=== PATIENT | female | born 1985 | race Caucasian/White ===

== ENCOUNTER 2019-03-03 13:30 | Emergency (ER) | payer OTHER ==
--- NOTE | 2019-03-03 14:21 | ER Document Report ---
ED Medical Screen (RME) - General Chief Complaint: Abdominal Pain Stated Complaint: ABDOMINAL PAIN Time Seen by Provider: 03/03/19 14:15 Primary Care Provider: TIFFANY FRAZIER MD [Primary Care Provider] - Follow up as needed TRAVEL OUTSIDE OF THE U.[place] IN LAST 30 DAYS: No - HPI Notes: 03/03/19 14:19 Patient is a 33-year-old female with no significant past medical history aside from endometriosis and ovarian cyst who presents to [facility] department complaining of right lower quadrant pain. Patient states that this does not feel like previous ovarian cysts and is concerned about possible appendicitis. Her symptoms have been present for 2-3 days. Pain does not radiate. She is eating and drinking without difficulty. She is urinating normally and having normal bowel movements. She has not had any vaginal discharge, odor, or bleeding. No concern of STD or STI. Denies GALVAN, fever, neck pain, URI, CP, SOB, or rash. I have treated and performed a rapid initial assessment of this patient. A comprehensive ED assessment and evaluation of the patient, analysis of test results and completion of medical decision making process will be conducted by additional ED providers. I will defer imaging to the next provider as I do not have a table to evaluate the patient's abdomen thoroughly with to decipher between CT scan/ultrasound. PHYSICAL EXAMINATION: GENERAL: Well-appearing, well-nourished and in no acute distress. A&Ox4. Answers questions appropriately. LUNGS: Breath sounds clear to auscultation bilaterally and equal. No wheezes rales or rhonchi. HEART: Regular rate and rhythm without murmurs, rubs, gallops. ABDOMEN: Soft, nondistended abdomen. No guarding, no rebound. Normal bowel sounds present. No CVA tenderness bilaterally. + mild right lower quadrant/pelvic tenderness (cannot elicit thorough abd exam w/o table, however). Extremities: No cyanosis, clubbing, or edema b/l. NEUROLOGICAL: Normal speech, normal gait. PSYCH: Normal mood, normal affect. - Related Data Allergies/Adverse Reactions: No Known Allergies Allergy (Verified 03/03/19 13:30) Physical Exam - Vital signs Vitals: Temp Pulse Resp BP Pulse Ox 98.9 F 70 16 102/59 L 97 03/03/19 13:40 03/03/19 13:40 03/03/19 13:40 03/03/19 13:40 03/03/19 13:40 Course - Vital Signs Vital signs: Temp Pulse Resp BP Pulse Ox 98.9 F 70 16 102/59 L 97 03/03/19 13:40 03/03/19 13:40 03/03/19 13:40 03/03/19 13:40 03/03/19 13:40 Doctor's Discharge - Discharge Referrals: TIFFANY FRAZIER MD [Primary Care Provider] - Follow up as needed
[2019-03-03] MEDS ORDERED: MORPHINE SULFATE 10 MG/ML INJ IV ONE (14:48)
[2019-03-03] MEDS ORDERED: ONDANSETRON HCL INJ/PF 4 MG/2 ML SDV IV ONE (14:48)
[2019-03-03] MEDS ORDERED: NORMAL SALINE 1000 ML 1,000 ML IV ONE (14:49)
--- NOTE | 2019-03-03 14:54 | ER Document Report ---
ED General - General Chief Complaint: Abdominal Pain Stated Complaint: ABDOMINAL PAIN Time Seen by Provider: 03/03/19 14:15 Primary Care Provider: TIFFANY FRAZIER MD [ACTIVE STAFF] - Follow up as needed Mode of Arrival: Ambulatory Information source: Patient TRAVEL OUTSIDE OF THE [place] IN LAST 30 DAYS: No - HPI Patient complains to provider of: Right lower quadrant abdominal pain Onset: Other - Approximately 72 hours ago Onset/Duration: Sudden Quality of pain: Sharp Severity: Severe Pain Level: 4 Associated symptoms: denies: Chills, Fever Exacerbated by: Movement Relieved by: Denies Similar symptoms previously: No Recently seen / treated by doctor: No Notes: 33-year-old female coming in today with chief complaint right lower quadrant pain. About 72 hours ago she had generalized periumbilical pain she states this time has gone by the pain has migrated toward the right lower quadrant of her abdomen. She does not report any fevers but she has been taking ibuprofen to help control the pain. Patient also reports history of multiple ovarian cysts that have ruptured and cause pain in the past but this scenario does not quite fit the same pattern as before. She is here concerned about possible developing appendicitis. - Related Data Allergies/Adverse Reactions: No Known Allergies Allergy (Verified 03/03/19 13:30) Past Medical History - General Information source: Patient - Social History Smoking Status: Never Smoker Frequency of alcohol use: Occasional Drug Abuse: None Family History: Reviewed & Not Pertinent Patient has suicidal ideation: No Patient has homicidal ideation: No Renal/ Medical History: Denies: Hx Peritoneal Dialysis Past Surgical History: Reports: Hx Gynecologic Surgery - For endometriosis Review of Systems - Review of Systems Notes: Constitutional: No fevers. No chills. EENT: No eye redness. No eye pain. No ear pain. No sore throat. Cardiovascular: No chest pain. No palpitations. Respiratory: No cough. No shortness of breath. No respiratory distress. Gastrointestinal: Positive for abdominal pain. No nausea, vomiting, or diarrhea. Genitourinary: Atraumatic. No lesions. No pain. No discharge. Musculoskeletal: Atraumatic. No swelling. No deformities. Skin: No rash or lesions. Lymphatic: No swollen lymph nodes. Neurologic: No headache. No syncope. Psychiatric: No suicidal or homicidal ideation. Physical Exam - Vital signs Vitals: Temp Pulse Resp BP Pulse Ox 98.9 F 70 16 102/59 L 97 03/03/19 13:40 03/03/19 13:40 03/03/19 13:40 03/03/19 13:40 03/03/19 13:40 - Notes Notes: General: Well-developed, well-nourished. In no acute distress. Non-toxic appe aring. Cardiac: Well-perfused. Regular rate and rhythm. No murmurs, rubs, or gallops. Pulmonary: No respiratory distress. No cyanosis. Bilateral lung fiels are clear to auscultation. Abdominal: Tenderness to palpation of the suprapubic and right lower quadrant regions. There is rebound tenderness on palpation of the right lower quadrant. Otherwise the abdomen is benign. Nondistended. Bowel sounds are present in all 4 quadrants. HEENT: Head is atraumatic. Conjunctivae not reddened. No tearing. PERRL. EOMI. Orbits atraumatic. No periorbital swelling or erythema. Oropharynx is without er ythema, swelling, or exudates. Neck: Supple. No adenopathy. No meningismus. Dermatologic: Warm with good turgor. No rash. Atraumatic. Chest: Atraumatic. No chest wall tenderness to palpation. Musculoskeletal: Moves all extremities well. No range of motion deficits. no muscular or joint tenderness. No paraspinal muscle tenderness. no midline spinal tenderness or step-off. Genitourinary: Examination deferred Neurologic: No gross neurologic deficits. Psychiatric: Normal mood. Course - Re-evaluation Re-evalutation: 03/03/19 14:54 Patient with history of frequent ovarian cysts. She is at risk for torsion. Also given her history of periumbilical pain that localized to the right lower quadrant with rebound tenderness also definitely need to consider appendicitis. 03/03/19 17:40 Labs reassuring. There is a 6.4 cm right ovarian mass which has a broad differential. Patient is aware this is going to need [employer]EL[employer] follow-up. In the meantime, I will write her a prescription for pain medication and nausea medication as needed. We will give her [employer]EL[employer] for follow-up. - Vital Signs Vital signs: Temp Pulse Resp BP Pulse Ox 98.9 F 70 16 102/59 L 97 03/03/19 13:40 03/03/19 13:40 03/03/19 13:40 03/03/19 13:40 03/03/19 13:40 - Laboratory Result Diagrams: 03/03/19 15:32 03/03/19 15:32 Laboratory results interpreted by me: 03/03/19 03/03/19 14:50 15:32 Total Protein 8.3 H Urine Ketones TRACE H Discharge - Discharge Clinical Impression: Ovarian mass, right Condition: Good Disposition: HOME, SELF-CARE Instructions: Ovarian Cyst ([facility]) Additional Instructions: Please call for the soonest appointment with the theology professor for further evaluation of the mass on your right ovary. Prescriptions: Hydrocodone/Acetaminophen [[place] 5-325 mg Tablet] 1 tab PO Q6HP PRN #15 tablet PRN Reason: Ondansetron [Zofran Odt 4 mg Tablet] 1 - 2 tab PO Q4H PRN #15 tab.rapdis PRN Reason: For Nausea/Vomiting Referrals: TIFFANY FRAZIER MD [ACTIVE STAFF] - Follow up as needed FABIO MCMULLEN MD [[facility]] - 03/05/19 Print Language: Mongolian
[2019-03-03 15:13] LABS: APPEARANCE,URINE CLEAR; BILIRUBIN,URINE NEGATIVE (NEGATIVE); COLOR,URINE STRAW; GLUCOSE, URINE NEGATIVE (NEGATIVE); KETONES,URINE TRACE mg/dL (NEGATIVE); LEUKOCYTE ESTERASE,URINE NEGATIVE (NEGATIVE); NITRITE,URINE NEGATIVE (NEGATIVE); PROTEIN,URINE NEGATIVE (NEGATIVE); URINE SPECIFIC GRAVITY 1.008; UROBILINOGEN,URINE NEGATIVE mg/dL (<2.0)
[2019-03-03 15:52] LABS: ABSOLUTE EOSINOPHILS # (AUTO) 0.2 10^3/uL (0.0-0.6); ABSOLUTE LYMPHOCYTES (AUTO) 2.5 10^3/uL (0.5-4.7); ABSOLUTE MONOCYTES (AUTO) 0.5 10^3/uL (0.1-1.4); ABSOLUTE NEUT (AUTO) 7.1 10^3/uL (1.7-8.2); BASOPHILS % (AUTO) 0.5 % (0-2); EOSINOPHILS % (AUTO) 2.3 % (0-6); HEMATOCRIT 39.1 % (36.0-47.0); HEMOGLOBIN 13.3 g/dL (12.0-15.5); MEAN CORPUSCULAR HEMOGLOBIN 29.9 pg (27.0-33.4); MEAN CORPUSCULAR VOLUME 88 fl (80-97); MONOCYTES % (AUTO) 4.9 % (3-13); RED BLOOD COUNT 4.43 10^6/uL (3.72-5.28); RED CELL DISTRIBUTION WIDTH 13.3 % (11.5-14.0); SEGMENTED NEUTROPHILS % (AUTO) 68.3 % (42-78); TOTAL CELLS COUNTED % (AUTO) 100 %; WHITE BLOOD COUNT 10.4 10^3/uL (4.0-10.5)
[2019-03-03 16:03] LABS: ALANINE AMINOTRANSFERASE 20 U/L (9-52); ALBUMIN 4.8 g/dL (3.5-5.0); ALKALINE PHOSPHATASE 85 U/L (38-126); ANION GAP 10 (5-19); ASPARTATE AMINO TRANSFERASE 19 U/L (14-36); BILIRUBIN,DIRECT 0.2 mg/dL (0.0-0.4); BILIRUBIN,TOTAL 0.3 mg/dL (0.2-1.3); BLOOD UREA NITROGEN 15 mg/dL (7-20); CALCIUM 10.2 mg/dL (8.4-10.2); CARBON DIOXIDE 25 mmol/L (22-30); CHLORIDE 106 mmol/L (98-107); GLUCOSE 87 mg/dL (75-110); PLATELET COUNT 301 10^3/uL (150-450); POTASSIUM 3.9 mmol/L (3.6-5.0); SODIUM 140.7 mmol/L (137-145); TOTAL PROTEIN 8.3 g/dL (6.3-8.2)
--- NOTE | 2019-03-03 16:29 | RADIOLOGY REPORT (SQ) ---
EXAM DESCRIPTION: CT ABD/PELVIS WITH IV ONLY COMPLETED DATE/TIME: 03/03/2019 4:10 pm REASON FOR STUDY: rlq pain with rebound tenderness r/o appendix COMPARISON: None. TECHNIQUE: CT scan of the abdomen and pelvis performed using helical scanning technique with dynamic intravenous contrast injection. No oral contrast. Images reviewed with lung, soft tissue, and bone windows. Reconstructed coronal and sagittal MPR images reviewed. Delayed images for evaluation of the urinary system also acquired. All images stored on PACS. All CT scanners at this facility use dose modulation, iterative reconstruction, and/or weight based d osing when appropriate to reduce radiation dose to as low as reasonably achievable (ALARA). [facility]: Dose Right [facility]: CareDose [facility]: Dose Right [facility]: Teradose 4D [facility]: StormMQ CONTRAST TYPE AND DOSE: contrast/concentration: Isovue 350.00 mg/ml; Total Contrast Delivered: 95.0 ml; Total Saline Delivered: 50.0 ml 95 mL IV of Omnipaque 350- low osmolar. RENAL FUNCTION: None required. The patient is less than 50 years old. RADIATION DOSE: CT Rad equipment meets quality standard of care and radiation dose reduction techniq ues were employed. CTDIvol: 9.0 - 12.6 mGy. DLP: 1087 mGy-cm.. LIMITATIONS: None. FINDINGS: LOWER CHEST: No significant findings. No nodules or infiltrates. LIVER: Normal size. No masses. No dilated ducts. SPLEEN: Normal size. No focal lesions. Splenule present. PANCREAS: No masses. No significant calcifications. No adjacent inflammation or peripancreatic fluid collections. Pancreatic duct not dilated. GALLBLADDER: No identified stones by CT criteria. No inflammatory changes to suggest cholecystitis. ADRENAL GLANDS: No significant masses or asymmetry. RIGHT KIDNEY AND URETER: No solid masses. No significant calcifications. No hydronephrosis or hyd roureter. LEFT KIDNEY AND URETER: No solid masses. No significant calcifications. No hydronephrosis or hydr oureter. AORTA AND VESSELS: No aneurysm. No dissection. Renal arteries, SMA, celiac without stenosis. RETROPERITONEUM: No retroperitoneal adenopathy, hemorrhage or masses. BOWEL AND PERITONEAL CAVITY: No dilated loops of bowel. No intraperitoneal free air free fluid. No peritoneal mass. APPENDIX: Normal. PELVIS: Just superior to the uterine fundus is a large cystic like lesion measuring 6.0 x 5.4 x 6.9 c m. Unclear if this is uterus or ovarian in origin. Left adnexal hypodensity measuring 3.6 x 2.3 cm and likely represents an ovarian cyst. ABDOMINAL WALL: No masses. No hernias. BONES: Mild L5-S1 degenerative disc disease. OTHER: No other significant finding. IMPRESSION: 1. Normal appendix. 2. Large cystic like lesion in the pelvis. Unclear if this is uterine or ovarian in origin. Recomme nd dedicated pelvic ultrasound for further evaluation. TECHNICAL DOCUMENTATION: JOB ID: [id number] Quality ID # [id number]: Final reports with documentation of one or more dose reduction techniques (e.g., Au tomated exposure control, adjustment of the mA and/or kV according to patient size, use of iterative reconstruction technique) 2010 [employer]- All Rights Reserved Reading location - IP/workstation name: [email or web address]
--- NOTE | 2019-03-03 16:59 | RADIOLOGY REPORT (SQ) ---
EXAM DESCRIPTION: U/S NON OB PEL W/DOPPLER COMPLETED DATE/TIME: 03/03/2019 4:38 pm REASON FOR STUDY: rlq pain. hx cysts. r/o torsion COMPARISON: 03/03/2019 TECHNIQUE: Dynamic and static grayscale images acquired of the pelvis via transvaginal approach and recorded on PACS. Additional selected color Doppler and spectral images recorded. LIMITATIONS: None. FINDINGS: UTERUS: Contour normal. No mass. ENDOMETRIAL STRIPE: No focal or generalized thickening. No masses. CERVIX: No nabothian cysts. RIGHT OVARY AND DOPPLER: There is a 6.4 cm heterogeneous, Iso to hyperechoic lesion within the right ovary that demonstrates some internal complication as well. Doppler evaluation demonstrates normal v ascular flow within the right ovary LEFT OVARY AND DOPPLER: There is a 3.6 cm simple cyst within the left ovary. Doppler evaluation demo nstrates normal vascular flow within the left ovary. FREE FLUID: None noted. OTHER: No other significant finding. MEASUREMENTS: UTERUS: 7.4 x 3.7 x 4.7 cm ENDOMETRIAL STRIPE: 3.6 mm RIGHT OVARY: 6.5 x 5.8 x 6.5 cm LEFT OVARY: 5.0 x 3.3 x 3.9 cm IMPRESSION: 1. 6.4 cm Iso to hyperechoic complicated mass within the right ovary. The differential diagnosis includes hemorrhagic cyst, endometrioma, and dermoid. A follow-up examination after 2 men strual cycles (or equivalent) is recommended to further evaluate. 2. Simple cyst in the left ovary. 3. No evidence of torsion TECHNICAL DOCUMENTATION: JOB ID: [id number] 1595[employer]- All Rights Reserved Rev Reading location - IP/workstation name: [email or web address]
[2019-03-03 18:52] VITALS: BP 106/64
== END 2019-03-03 18:00 | disposition home or self-care (01) ==
LOC: EDBD → ER 13:30
DX: N83.201 Unspecified ovarian cyst, right side (principal); R10.31 Right lower quadrant pain; R10.33 Periumbilical pain
CPT/HCPCS: 99284; 96374; 96375; 36415; 87086; 85025; 81025; 80053; 81001; 76856; 93976; 74177; J2270; J2405; J7030

== ENCOUNTER → 2020-02-11 | Outpatient (CLI) | payer OTHER | LOC: OD 09:53 | PROVIDERS: ATTEND Specialist | DX: O09.00 Supervision of pregnancy with history of infertility, unspecified trimester (principal); Z3A.00 Weeks of gestation of pregnancy not specified | CPT/HCPCS: 36415; 84702 ==

== ENCOUNTER → 2020-02-13 | Outpatient (CLI) | payer OTHER | LOC: OD 08:24 | PROVIDERS: ATTEND Specialist | DX: O09.00 Supervision of pregnancy with history of infertility, unspecified trimester (principal) | CPT/HCPCS: 36415; 84702 ==

== ENCOUNTER 2020-11-04 19:29 | Emergency (ER) | payer OTHER ==
--- NOTE | 2020-11-04 21:05 | ER Document Report ---
ED Medical Screen (RME) - General Chief Complaint: Abdominal Pain Stated Complaint: ABDOMINAL PAIN Time Seen by Provider: 11/04/20 20:54 Primary Care Provider: PORSHA STOUT MD [Primary Care Provider] - Follow up as needed TRAVEL OUTSIDE OF THE [place] IN LAST 30 DAYS: No - HPI Notes: 11/04/20 21:00 35-year-old female 3 weeks via IVF presents to the emergency room via EMS for epigastric and upper abdominal pressure and pain that started around 7 PM when she was breast-feeding, lasted for approximately an hour and a half, states she felt better after vomiting and Zofran. Denies any fevers or chills. Patient denies any pain near her . Denies any complications with . Baby healthy. Reports pain at the time is 5 out of 5 has lessened now to 2 out of 5. Reports she does still have her gallbladder. She states she ate late lunch. I have greeted and performed a rapid initial assessment of this patient. A comprehensive ED assessment and evaluation of the patient, analysis of test results and completion of the medical decision making process will be conducted by additional ED providers. PHYSICAL EXAMINATION: GENERAL: Well-appearing, well-nourished and in no acute distress. HEAD: Atraumatic, normocephalic. CV: s1, s2 regular LUNGS: No respiratory distress abd: RUQ, epigastic, LLQ abd pain Musculoskeletal: Normal range of motion NEUROLOGICAL: Normal speech, normal gait. SKIN: Warm, Dry, normal turgor, no rashes or lesions noted. - Related Data Allergies/Adverse Reactions: No Known Allergies Allergy (Verified 11/04/20 20:51) Past Medical History - Social History Frequency of alcohol use: None Drug Abuse: None Renal/ Medical History: Denies: Hx Peritoneal Dialysis Past Surgical History: Reports: Hx Gynecologic Surgery - For endometriosis Physical Exam - Vital signs Vitals: Temp Pulse Resp BP Pulse Ox 98.1 F 71 22 H 111/52 L 100 11/04/20 19:40 11/04/20 19:40 11/04/20 19:40 11/04/20 19:40 11/04/20 19:40 Course - Vital Signs Vital signs: Temp Pulse Resp BP Pulse Ox 98.1 F 71 22 H 111/52 L 100 11/04/20 19:40 11/04/20 19:40 11/04/20 19:40 11/04/20 19:40 11/04/20 19:40 Doctor's Discharge - Discharge Referrals: PORSHA STOUT MD [Primary Care Provider] - Follow up as needed
[2020-11-04 21:28] LABS: ABSOLUTE LYMPHOCYTES (AUTO) 1.2 10^3/uL (0.5-4.7); ABSOLUTE MONOCYTES (AUTO) 0.6 10^3/uL (0.1-1.4); ABSOLUTE NEUT (AUTO) 8.6 10^3/uL (1.7-8.2); BASOPHILS % (AUTO) 0.2 % (0-2); EOSINOPHILS % (AUTO) 0.5 % (0-6); HEMATOCRIT 33.8 % (36.0-47.0); HEMOGLOBIN 11.3 g/dL (12.0-15.5); LYMPHOCYTES % (AUTO) 11.3 % (13-45); MEAN CORPUSCULAR HGB CONC 33.3 g/dL (32.0-36.0); MEAN CORPUSCULAR VOLUME 90 fl (80-97); MONOCYTES % (AUTO) 5.5 % (3-13); PLATELET COUNT 278 10^3/uL (150-450); RED BLOOD COUNT 3.75 10^6/uL (3.72-5.28); RED CELL DISTRIBUTION WIDTH 13.4 % (11.5-14.0); SEGMENTED NEUTROPHILS % (AUTO) 82.5 % (42-78); TOTAL CELLS COUNTED % (AUTO) 100 %; WHITE BLOOD COUNT 10.5 10^3/uL (4.0-10.5)
[2020-11-04 21:49] LABS: ALBUMIN 4.4 g/dL (3.5-5.0); CARBON DIOXIDE 30 mmol/L (22-30); TOTAL PROTEIN 7.4 g/dL (6.3-8.2)
[2020-11-04 21:52] LABS: ALKALINE PHOSPHATASE 197 U/L (38-126); ANION GAP 9 (5-19); ASPARTATE AMINO TRANSFERASE 117 U/L (14-36); BILIRUBIN,DIRECT 0.3 mg/dL (0.0-0.4); BILIRUBIN,TOTAL 0.6 mg/dL (0.2-1.3); BLOOD UREA NITROGEN 16 mg/dL (7-20); CALCIUM 9.7 mg/dL (8.4-10.2); CHLORIDE 101 mmol/L (98-107); GLUCOSE 117 mg/dL (75-110); POTASSIUM 4.1 mmol/L (3.6-5.0)
--- NOTE | 2020-11-04 22:33 | RADIOLOGY REPORT (SQ) ---
CHEST X-RAY 1 VIEW on 11/04/2020 at 9:40 PM CLINICAL INDICATION: Epigastric pain COMPARISON: None FINDINGS: The lungs are clear. There is slight elevation of the right hemidiaphragm. Cardiac, hilar and mediastinal contours are within normal limits. Pulmonary vascularity is within normal limits. No bony abnormality is noted. IMPRESSION: No active disease.
--- NOTE | 2020-11-04 22:34 | RADIOLOGY REPORT (SQ) ---
EXAM DESCRIPTION: US ABDOMEN LIMITED COMPLETED DATE/TME: 11/04/2020 22:00 CLINICAL HISTORY: 35 years, Female, epigastric abd pain, n/v COMPARISON: EXAM DESCRIPTION: U/S ABDOMEN LIMITED W/O DOP CLINICAL HISTORY: epigastric abd pain, n/v COMPARISON: None. FINDINGS: Sonography was performed of the right upper quadrant. Liver span is 17.9 cm. Main portal vein flow is in the expected direction. Multiple mobile gallstones are present with no sonographic Estrada's sign. Right kidney measures 11.4 cm in length. The gallbladder is normal in appearance with no evidence of sludge, wall thickening or pericholecystic fluid. No focal hepatic or pancreatic lesion is seen. The right kidney appears normal. Common duct is normal in caliber. IMPRESSION: Multiple mobile gallstones with no evidence of acute cholecystitis or common duct obstruction. See additional findings above.
--- NOTE | 2020-11-05 02:51 | ER Document Report ---
ED GI/ - General Chief Complaint: Abdominal Pain Stated Complaint: ABDOMINAL PAIN Time Seen by Provider: 11/04/20 20:54 Primary Care Provider: PORSHA STOUT MD [NO LOCAL MD] - Follow up as needed Notes: This 35-year-old woman presents to the emergency department with a episode of severe epigastric pain which began in the late afternoon. She describes a very sharp and searing pain associated with nausea and vomiting. At the emergency department she had a large amount of emesis she concluded fluid and undigested food. Patient notes that after the vomiting episode she felt better and the pain resolved. She is 3 weeks and states she has never had any pain like this before. She was breast-feeding at the time of onset of symptoms. TRAVEL OUTSIDE OF THE [place] IN LAST 30 DAYS: No - Related Data Allergies/Adverse Reactions: No Known Allergies Allergy (Verified 11/04/20 20:51) Past Medical History - Social History Smoking Status: Never Smoker Frequency of alcohol use: None Drug Abuse: None Family History: Reviewed & Not Pertinent Renal/ Medical History: Denies: Hx Peritoneal Dialysis Past Surgical History: Reports: Hx Gynecologic Surgery - For endometriosis Review of Systems - Review of Systems Notes: Constitutional: Negative for fever. HENT: Negative for sore throat. Eyes: Negative for visual changes. Cardiovascular: Negative for chest pain. Respiratory: Negative for shortness of breath. Gastrointestinal: See HPI Genitourinary: Negative for dysuria. Musculoskeletal: Negative for back pain. Skin: Negative for rash. Neurological: Negative for headaches, weakness or numbness. 10 point ROS negative except as marked above and in HPI. Physical Exam - Vital signs Vitals: Temp Pulse Resp BP Pulse Ox 98.1 F 71 22 H 111/52 L 100 11/04/20 19:40 11/04/20 19:40 11/04/20 19:40 11/04/20 19:40 11/04/20 19:40 - Notes Notes: PHYSICAL EXAMINATION: Physical Exam: General: Well-nourished well-developed 35-year-old female in no acute distress HEENT: NC/AT, pupils equal round and reactive to light, MM moist,nares clear, o ropharynx clear, airway patent Neck: supple, no adenopathy, no masses. Good range of motion Lungs: clear, no wheezing, no rales no rhonchi CVS: Regular rate and rhythm no murmur gallop or rub Abdomen: Soft, active, nontender, no masses, no hepatosplenomegaly Ext: No edema, clubbing or cyanosis. Neuro: Alert and responsive, moving all 4 extremities on command, cranial nerves intact, no focal findings Skin: Intact no open lesions, no rash Course - Vital Signs Vital signs: Temp Pulse Resp BP Pulse Ox 98.6 F 76 16 112/60 99 11/05/20 01:46 11/05/20 01:46 11/05/20 01:46 11/05/20 01:46 11/05/20 01:46 - Laboratory Results Result Diagrams: 11/04/20 21:11 11/04/20 21:11 Laboratory Results Interpreted: 11/04/20 11/04/20 21:11 21:11 Hgb 11.3 L Hct 33.8 L Lymph % (Auto) 11.3 L Absolute Neuts (auto) 8.6 H Seg Neutrophils % 82.5 H Glucose 117 H AST 117 H ALT 54 H Alkaline Phosphatase 197 H Critical Laboratory Results Reviewed: No Critical Results - Radiology Results Radiology Results Interpreted: 11/05/20 02:48 Abdomen Ultrasound 11/04/20 20:59 IMPRESSION: Multiple mobile gallstones with no evidence of acute cholecystitis or common duct obstruction. See additional findings above. Chest X-Ray 11/04/20 21:00 IMPRESSION: No active disease. Critical Radiology Results Reviewed: No Critical Results Discharge - Discharge Clinical Impression: Epigastric abdominal pain, Gallstone Condition: Good Disposition: HOME, SELF-CARE Instructions: Abdominal Pain ([facility]) Additional Instructions: You were seen in the emergency department with a episode of pain in the upper part of the stomach. These findings are nonspecific but can sometimes be re lated to gallbladder bladder colic. You do have gallstones on your ultrasound but no signs of infection or blockage. If your symptoms are recurrent or if you have unexplained nausea you should follow-up with your doctor for possible gallstone colic You may return to the emergency department if needed. HOME CARE INSTRUCTIONS & INFORMATION: Thank you for choosing us for your medical needs. We hope you're satisfied with the care you received. After you leave, you must properly care for your problem and, at the same time, observe its progress. Any condition can change. Some illnesses can change rapidly over hours or days. If your condition worsens, return to the Emergency Department or see your physician promptly. ABOUT YOUR X-RAYS AND EKG'S: If you had an EKG or X-rays taken, they have been read by the Emergency Physician. The X-rays and EKG's will also be read by a Radiologist or Groutman within 24 hours. If discrepancies are noted, you will be notified by telephone. Please be certain the ED has a correct telephone number & address where you can be reached. Also, realize that some fractures or abnormalities do not show up on initial X-rays. If your symptoms continue, see your physician. ABOUT YOUR LABORATORY TEST: If you had laboratory tests, the results have been reviewed by the Emergency Physician. Some test results (for example cultures) may not be available for several days. You will be contacted if any test result shows you need additional treatment. Please be certain the ED has a correct telephone number and address where you can be reached. ABOUT YOUR MEDICATIONS: You will receive instructions on how to take your medicine on the prescription label you receive. Additional information may be provided by the Pharmacy. If you have questions afterwards, call the ED for clarification or further instructions. Some prescribed medications may cause drowsiness. Do not perform tasks such as driving a car or operating machinery without consulting your Pharmacist. If you feel you need a refill of pain medication, your condition will need re-evaluation. Please do not call for a refill of any medication. ABOUT YOUR SIGNATURE: Signature of this document acknowledges to followin. Understanding that you received emergency treatment and that you may be released before al medical problems are known or treated. Please be certain the ED has a correct phone number & address where you can be reached. 2. Acknowledgement that you will arrange for follow-up care as recommended. 3. Authorization for the Emergency Physician to provide information to your follow-up Physician in order to maximize your care. AT ANY TIME, IF YOUR SYMPTOMS CHANGE SIGNIFICANTLY OR WORSEN OR YOU DEVELOP NEW SYMPTOMS, RETURN TO THE EMERGENCY DEPARTMENT IMMEDIATELY FOR RE-EVALUATION. OUR GOAL IS TO PROVIDE EXCELLENT MEDICAL CARE! WE HOPE THAT WE HAVE MET YOUR EXPECTATIONS DURING YOUR EMERGENCY DEPARTMENT VISIT AND THAT YOU FEEL YOU HAVE RECEIVED EXCELLENT CARE! Referrals: PORSHA STOUT MD [NO LOCAL MD] - Follow up as needed
[2020-11-05 03:05] VITALS: BP 111/50
== END 2020-11-05 03:06 | disposition home or self-care (01) ==
LOC: ER 19:29
DX: O90.89 Other complications of the puerperium, not elsewhere classified (principal); K80.80 Other cholelithiasis without obstruction; R10.13 Epigastric pain; R11.2 Nausea with vomiting, unspecified
CPT/HCPCS: 36415; 71045; 76705; 80053; 83690; 85025; 99285